=== PATIENT | female | born 1985 ===

== ENCOUNTER 2018-06-22 05:01 | Emergency (ER) | payer OTHER ==
--- NOTE | 2018-06-22 05:46 | C.PDOC ---
History Of Present Illness 33 year old female presents to the ED c/o urinary frequency for the past week. Patient is also now c.o lower back pain. Patient reports she tried using some OTC medication with no relief. Patient denies fever, chills, nausea, vomit, dysuria, hematuria, abdominal pain. Time Seen by Provider: 06/22/18 05:20 Chief Complaint (Nursing): Back Pain History Per: Patient History/Exam Limitations: no limitations Onset/Duration Of Symptoms: Days (week) Current Symptoms Are (Timing): Still Present Quality Of Discomfort: "Pain" Recent travel outside of the [place]: No Additional History Per: Patient Past Medical History Reviewed: Historical Data, Nursing Documentation, Vital Signs Vital Signs: Last Vital Signs Temp 97.7 F 06/22/18 05:11 Pulse 70 06/22/18 05:11 Resp 16 06/22/18 05:11 BP 127/79 06/22/18 05:11 Pulse Ox 99 06/22/18 05:11 - Medical History PMH: Hypothyroidism Denies: Chronic Kidney Disease Surgical History: Tonsillectomy Family History: States: Unknown Family Hx - Social History Hx Alcohol Use: Yes Hx Substance Use: No - Immunization History Hx Tetanus Toxoid Vaccination: Yes Hx Influenza Vaccination: No Hx Pneumococcal Vaccination: Yes Review Of Systems Constitutional: Negative for: Fever, Chills Cardiovascular: Negative for: Chest Pain Respiratory: Negative for: Shortness of Breath Gastrointestinal: Negative for: Nausea, Vomiting, Abdominal Pain, Diarrhea Genitourinary: Positive for: Frequency. Negative for: Dysuria, Hematuria Musculoskeletal: Positive for: Back Pain Neurological: Negative for: Weakness, Numbness Physical Exam - Physical Exam Appears: Non-toxic, No Acute Distress Skin: Normal Color, Warm, Dry Head: Atraumatic, Normacephalic Eye(s): bilateral: Normal Inspection Neck: Normal ROM, Supple Chest: Symmetrical Cardiovascular: Rhythm Regular Respiratory: Normal Breath Sounds, No Rales, No Rhonchi, No Wheezing Gastrointestinal/Abdominal: Soft, No Tenderness, No Guarding, No Rebound Back: No CVA Tenderness Extremity: Normal ROM, No Tenderness, No Swelling Neurological/Psych: Oriented x3, Normal Speech, Normal Cognition Gait: Steady ED Course And Treatment O2 Sat by Pulse Oximetry: 99 (ON RA) Pulse Ox Interpretation: Normal Progress Note: Plan: - Motrin 600 mg po. - UA. - Urine culture. UA result reviewed and pt was placed on PO abx and advised PMD f/u. Return instructions d/w who understands and agrees with plan Disposition Counseled Patient/Family Regarding: Diagnosis, Need For Followup, Rx Given - Disposition Disposition: HOME/ ROUTINE Disposition Time: 06:19 Condition: STABLE Additional Instructions: Please follow up with PMD Take medications as directed Return to ER if worse Instructions: Urinary Tract Infection, Adult (DC) Forms: [employer] (Slovenian) - Clinical Impression Clinical Impression: Urinary tract infection - PA / CBX OPERATOR / Resident Statement MD/DO has reviewed & agrees with the documentation as recorded. - Scribe Statement The provider has reviewed the documentation as recorded by the Scribe Mook Duke All medical record entries made by the Sudhiribrandell were at my direction and personally dictated by me. I have reviewed the chart and agree that the record accurately reflects my personal performance of the history, physical exam, medical decision making, and the department course for this patient. I have also personally directed, reviewed, and agree with the discharge instructions and disposition.
[2018-06-22 05:50] LABS: HCG,QUALITATIVE URINE NEGATIVE (NEGATIVE)
[2018-06-22 05:54] LABS: SQUAMOUS EPITHIAL 3 /hpf (0-5); URINE BACTERIA OCC (<OCC); URINE BILIRUBIN NEGATIVE (NEGATIVE); URINE BLOOD 2+ (NEGATIVE); URINE CLARITY Hazy (Clear); URINE COLOR Amber (YELLOW); URINE GLUCOSE (UA) NORMAL (Normal); URINE LEUKOCYTE ESTERASE 3+ Leu/uL (Negative); URINE PROTEIN 2+ mg/dL (NEGATIVE); WBC CLUMPS FEW /hpf
[2018-06-22 06:30] VITALS: BP 122/66; PULSE 81; RESP 20; TEMP 98
[2018-06-22 06:36] VITALS: O2SAT 99
== END 2018-06-22 06:30 | disposition home or self-care (01) ==
LOC: C.ER 05:01
DX: N39.0 Urinary tract infection, site not specified (principal)